=== PATIENT | male | born 1975 | race Hispanic/Latino ===

== ENCOUNTER 2024-10-16 08:52 | Emergency (ER) | payer SELFPAY ==
[~2024-10-16] VITALS: Ht 167.6 cm; Wt 67.1 kg
[2024-10-16 09:15] VITALS: TEMP 98.6
[2024-10-16 09:30] VITALS: PULSE 80; RESP 16; O2SAT 100
[2024-10-16] MEDS ORDERED: BACTRIM DS TAB1 EACH PO (09:33)
== END 2024-10-16 09:41 | disposition home or self-care (01) ==
LOC: ER 09:28
DX: L03.115 Cellulitis of right lower limb (principal); R23.3 Spontaneous ecchymoses; Z89.512 Acquired absence of left leg below knee; E11.9 Type 2 diabetes mellitus without complications
CPT/HCPCS: 99283